=== PATIENT | female | born 1990 | race Caucasian/White ===

== ENCOUNTER 2025-02-19 10:42 | Emergency (ER) | payer MEDICAID ==
[~2025-02-19] VITALS: Ht 170.2 cm; Wt 59.0 kg
[2025-02-19 10:45] VITALS: O2SAT 100
[2025-02-19 11:25] LABS: HEMATOCRIT. 39.3 % (36.0-48.0); HEMOGLOBIN. 12.9 g/dL (12.0-16.0); MEAN PLATELET VOLUME 7.6 fl (7.4-10.4); PLATELET 265 x1000/uL (130-400); RED BLOOD CELL COUNT 5.48 mill/uL (4.2-5.4); RED CELL DISTRIBUTION WIDTH 19.0 % (11.6-14.6)
[2025-02-19] MEDS: ACETAMINOPHEN 500MG TABLET PO ONE (11:41)
[2025-02-19 11:48] LABS: CREATININE 0.7 mg/dL (0.6-1.0); UREA NITROGEN BLOOD 8 mg/dL (9-23)
[2025-02-19 11:49] LABS: TROPONIN I HIGH SENSITIVITY 5 ng/L (3.0-34)
[2025-02-19 11:50] LABS: ASPARTATE AMINOTRANSFERASE 27 IU/L (<34); BILIRUBIN DIRECT 0.3 mg/dL (<=3.0); BILIRUBIN TOTAL 1.1 mg/dL (0.1-1.0)
[2025-02-19 11:54] LABS: PROTEIN TOTAL 7.2 g/dL (6.0-8.3)
[2025-02-19] MEDS: KETOROLAC 15MG/ML VIAL IM ONE (12:30)
[2025-02-19 13:00] VITALS: BP 115/74; PULSE 99; RESP 16; TEMP 36.7; O2SAT 100
[2025-02-19] MEDS ORDERED: NAPR-1176 MT (13:07)
[2025-02-19] MEDS ORDERED: FAMO40TA70 MT (13:07)
[2025-02-19 18:18] LABS: LYMPHOCYTES % MANUAL 9.0 % (20.0-60.0); MONOCYTES % MANUAL 2.0 % (2.0-8.0); NEUTROPHILS % MANUAL 89.0 % (45.0-75.0); PLATELET ESTIMATE NORMAL
== END 2025-02-19 13:30 | disposition home or self-care (01) ==
LOC: ER 10:42
DX: R07.9 Chest pain, unspecified (principal); R06.02 Shortness of breath; R05.9 Cough, unspecified; Z79.1 Long term (current) use of non-steroidal anti-inflammatories (NSAID); Z79.899 Other long term (current) drug therapy
CPT/HCPCS: 80076; 80048; 81025; 83735; 85025; 85379; 84484; 36415; 71045; 93005; 96372; 99285; J1885; Z7610